=== PATIENT | female | born 2000 | race African-American/Black ===

== ENCOUNTER 2020-03-12 19:32 | Emergency (ER) | payer BC ==
[~2020-03-12] VITALS: Ht 170.2 cm; Wt 63.5 kg
--- NOTE | 2020-03-12 19:49 | NUR ---
ED Nurse Note: pt presents to ED c/o frontal DURAN x 1 day, states that it is hard for her to concentrate and has made her vision blurry, pt also reports possible loss of taste, denies any exposure to COVID + pt, denies fevers or SOB.
[2020-03-12 19:50] VITALS: BP 99/70
[2020-03-12 20:37] LABS: APPEARANCE,URINE CLEAR; BILIRUBIN, URINE NEGATIVE (NEGATIVE); COLOR,URINE YELLOW; GLUCOSE, URINE (UA) NEGATIVE (NEGATIVE); KETONES,URINE 1+ (NEGATIVE); LEUKOCYTE ESTERASE ,URINE NEGATIVE (NEGATIVE); NITRITE,URINE NEGATIVE (NEGATIVE); PH,URINE 5 (4.5-8.0); PROTEIN,URINE 2+ (NEGATIVE); UROBILINOGEN,URINE NORMAL MG/DL (0.0-1.0)
[2020-03-12] MEDS ORDERED: Ketorolac 60mg Inj IM ONE (21:00)
[2020-03-12] MEDS ORDERED: ZITHROMAX250 MG ORAL (21:14)
[2020-03-12] MEDS ORDERED: TYLENOL325 MG ORAL (21:14)
[2020-03-12] MEDS ORDERED: NAPROXEN500 M1 ORAL (21:14)
--- NOTE | 2020-03-12 21:14 | Emergency Room Report ---
History of Present Illness General Chief Complaint: Headache Source: Patient Present Illness HPI 19-year-old female with no prior medical history presents with chief complaint of loss of taste and smell. States she smells "metal". Also complains of intermittent fatigue, dry cough, i ntermittent nasal congestion, and frontal headache located over her sinuses. Is similar to previous headaches that she has had in the past, however states that the she has never experienced difficulty smelling like this in the past. She is unaware of any recent sick contacts. No recent antibiotic use, travel, hospitalization, rash, photophobia, neck pain/stiffness, CP, SOB, n/v/d, hematuria, or dysuria. Denies thunderclap onset, trauma, falls, syncope, or worst headache of life. She took Tylenol prior to arrival with minimal relief of symptoms. Occupation: [employer] The patient's symptoms were gradual onset, severity was moderate, duration since a few days. Quality: Loss of smell Past medical history: Denies Past surgical history: Denies Smoking: Denies Alcohol use: Denies Drug use: Marijuana use Review of systems: CONST: No fevers or chills, No night sweats, fatigue PULMONARY: No productive cough, No shortness of breath CARDIAC: No chest pain, No palpitations GI: No vomiting, No diarrhea , No melena_or_BRBPR : No dysuria, No hematuria, No discharge NEURO: No new_focal_weakness_or_numbness, No confusion, No vision changes 14 point Review of Systems is otherwise negative except per HPI Physical Exam: GENERAL: Awake_alert_ nontoxic, no acute distress Spo2 98% on RA -normal EYES: Extraocular muscles are intact. Conjunctivae clear. Lids without swelling. No nystagmus. Negative hypopyon. PERRLA. ENT: External nose and ear normal_in_appearance. Oropharynx clear. Head_atraumatic, Moist_oral_mucosa. Uvula is midline. No pain with palpation of the trachea. NECK: No JVD. No meningismus. No thyromegaly. Supple. Trachea midline RESP: Normal respiratory effort. Symmetric rise. No stridor. Clear_to_auscultation_No_rales_No_wheezes Speaks in full and complete sentences. No subcostal retractions CARDIAC: Regular rate and regular rhytm. No_significant pedal edema. ABDOMEN: Soft. Nondistended. Nontender_No_rebound_or_guarding. MSK: Normal muscle tone, without rigidity. Extremities without asymmetric deformity or swelling. SKIN: Warm and dry. No visible cyanosis or pallor. No petechiae or rash NEUROLOGIC: Alert, oriented x3. Motor_and_sensation_grossly_intact. No truncal ataxia. Gait_normal No abnormal cerebellar signs. Normal uxigje-cs-jwji. No tenderness to palpation of bilateral temples Psych: Normal mood and affect, normal judgment and insight - COORDINATION OF CARE Case was discussed with: Patient Any labs and imaging that were ordered were interpreted as part of the medical decision making: Medical Decision Making/Plan: Differential for the patients headache includes COVID-19, viral infection, primary headache (migraine, tension, cluster), acute sinusitis Doubt subarachnoid hemorrhage, intracranial mass / tumor, meningitis, encephalitis, increased intracranial pressure, mastoiditis, dural venous thrombosis, temporal arteritis, acute angle closure glaucoma, among others. Patient is well-appearing, afebrile, neurologically intact with no nuchal rigi dity. Visual acuity is grossly intact. Covid swab was performed secondary to syndrome of symptoms and found to be positive. Headache not sudden and severe, not worst headache of life, no family hx of SAH, neurologically intact without any persistent vomiting. Not consistent with subarachnoid hemorrhage, dural venous thrombosis, increased intracranial pressure, or significant tumor at this time. No temporal tenderness, jaw claudication or vision loss. Eyes are reactive, with normal appearing anterior chambers. No evidence of temporal arteritis or acute angle closure glaucoma. Patient without meningismus, mastoid / sinus tenderness, altered mental status or seizure. Doubt subdural abscess, meningitis, encephalitis, mastoiditis. No significant trauma mechanism, not anticoagulated. [place] CT head criteria negative. CT scan of the head was ordered, however patient declined at this time. She states that she will follow-up and come back if she continues to have headache. The patient was nontoxic with benign vital signs. They did not meet admission criteria and was stable for outpatient therapy, under the current guideline. The patient was instructed to be home quarantined, and appropriate precautions were given. The patient was educated and instructed to notify a healthcare professional if they develop difficulty breathing, chest pain, palpitations, fever or other concerning symptoms. These instructions were given to the patient in both verbal and written forms. The patient was given an opportunity to ask questions. The patient was discharged with written instructions for COVID-19, including strict ED return precautions. Allergies: Coded Allergies: No Known Allergies (Unverified , 03/12/20) COVID-19 Screening Contact w/high risk pt: No Experienced COVID-19 symptoms?: Yes COVID-19 Testing performed LINE FIXER: No Patient History Last Menstrual Period: 02/2020 Nursing Documentation-[facility] Past Medical History: No Stated History Physical Exam Vital Signs Date Time Temp Pulse Resp B/P (MAP) Pulse Ox O2 Delivery O2 Flow Rate FiO2 03/12/20 19:37 98.4 74 16 99/70 (80) 98 Room Air Sp02 EP Interpretation: reviewed, normal Medical Decision Making Diagnostic Impression: Primary Impression: Headache Additional Impressions: COVID-19 Anosmia Reevaluation Time: 21:23 Last Vital Signs Date Time Temp Pulse Resp B/P (MAP) Pulse Ox O2 Delivery O2 Flow Rate FiO2 03/12/20 19:50 98.4 16 99/70 98 Room Air 03/12/20 19:37 74 Status: improved Disposition: HOME, SELF-CARE Admit Decision Time: 21:25 Condition: Stable Scripts Naproxen* (NAPROXEN*) 500 Mg Tablet.dr 500 MG ORAL TWICE A DAY for 7 Days, #14 TAB Prov: Zully Ingram D.O. 03/12/20 Acetaminophen (Tylenol) 325 Mg Tablet 325 MG ORAL Q6H PRN for Prn Pain/Headache/Temp > 101, #30 TAB 0 Refills Prov: Zully Ingram D.O. 03/12/20 Azithromycin* (ZITHROMAX*) 250 Mg Tablet 250 MG ORAL DAILY, #6 TAB 0 Refills Take two tables once daily for 1 day, then one tablet once daily for 4 days. Prov: Zully Ingram D.O. 03/12/20 Referrals: NOT CHOSEN IPA/,REFERRING (PCP) Patient Instructions: Sinus Headache Additional Instructions: Instructions for patient/molder inflated ball: Follow up with your physician in 1-2 days. Follow-up with your doctor sooner if your condition requires a more timely clinical reevaluation. Return to the emergency department immediately if you feel that your condition is worsening or if you have any new or concerning symptoms. Review your discharge instructions and take any prescriptions given as instructed. [facility] PROVIDES FREE OR LOW-COST HEALTH SERVICES TO PEOPLE WHO CAN SHOW PROOF THAT THEY LIVE IN [facility]. TO FIND MORE CLINICS PARTNERED WITH [facility] TO PROVIDE SERVICE, PLEASE CALL . Your evaluation suggests that you are suffering from a viral infection producing a viral syndrome. You can sign up for testing with [facility] at the following website as discussed [email or web address] Symptoms of a viral syndrome may include fever, sore throat, headache, body aches and pains, generalized weakness and fatigue, and runny nose. You do not show signs or symptoms suggestive of a serious or life threatening illness. This illness may be caused by a number of different viruses, including Influenza A or B or COVID-19. These viruses are highly contagious and spread rapidly from person to person via coughing and sneezing of the virus or by contaminated surface contact with nasal or other respiratory secretions. These viruses cause a similar combination of signs and symptoms which are typically much more severe than the common cold. Typically they begin with the rapid onset of fever, often high (over 102), body aches, fatigue, headache, and usually upper respiratory tract infections symptoms such as cough, runny nose, and sore throat. The illness typically lasts 7-10 days, with the fever and feelings of weakness and body aches usually lasting 3-5 days. Your own immune system fights off these infections. Only rarely do secondary bacterial infections occur (such as bacterial pneumonia) and can be serious. At this time your symptoms do not appear serious, however, there are limitations to online visits and if you are not improving you may need to be evaluated by a doctor in person and that doctor may need to do additional tests. INSTRUCTIONS: Illnesses such as yours typically resolve on their own with time however you must remember to stay hydrated and drink 2-3 times your normal fluid intake, as fever and your increased metabolism in fighting the infection uses more water. Fever control is important to help you feel better and to help prevent dehydration. Acetaminophen is an excellent choice for fever control and other symptoms (as long as you are not allergic to the medication). Rest is also important in helping your body fight this infection. Over the counter cough and decongestant medications are safe (as long as you dont have uncontrolled high blood pressure) and may help the cough and congestion slightly. As these viruses are highly contagious, good hand washing habits, and covering your cough and sneeze help prevent spread. Fever can be a sign of a serious infection and it is imperative that you go directly to an Emergency Department for serious symptoms such as weakness, confusion, significant shortness of breath, abdominal pain, or severe headache. Close follow up with a physician is important if you are not improving over the next few days or you experience worsening of your symptoms. Although it is impossible to know at this point if you have COVID-19 (the Benitez virus), please quarantine yourself and anyone else that is residing with you for the longer of the following time periods: 14 days OR 3 days after the last of your symptoms has resolved CONTACT THE DOCTOR RIGHT AWAY if you develop worsening symptoms such as shortness of breath, chest pain, neck stiffness, confusion or any other new, worsening, or concerning symptoms. For emergencies contact 911 immediately. Zully Ingram D.O. Mar 12, 2020 21:14
[2020-03-12 21:19] VITALS: BP 101/67
--- NOTE | 2020-03-12 21:20 | NUR ---
ER DISCHARGE NOTE: Patient is cleared to be discharged per ERMD, pt is aox4, on room air, with stable vital signs. pt was given dc and prescription instructions, pt was able to verbalize understanding, pt id band removed without complications. pt is able to ambulate with steady gait. pt took all belongings.
[2020-03-12 21:23] VITALS: BP 101/67
== END 2020-03-12 21:20 | disposition home or self-care (01) ==
LOC: EMR 20:28
DX: R51.9 Headache, unspecified (principal); U07.1 COVID-19; R43.0 Anosmia; R43.8 Other disturbances of smell and taste; R53.83 Other fatigue
CPT/HCPCS: 81003; 81025; 96372; 99283; U0002

== ENCOUNTER 2020-03-14 19:04 | Emergency (ER) | payer BC ==
[~2020-03-14] VITALS: Ht 170.2 cm; Wt 63.5 kg
[~2020-03-14 19:04] MED LIST: NAPROXEN500 M1 ORAL; TYLENOL325 MG ORAL; ZITHROMAX250 MG ORAL
[2020-03-14 19:10] VITALS: BP 125/72
--- NOTE | 2020-03-14 19:29 | NUR ---
ED Nurse Note: pt. aaox4, ambulatory. Patient walked into ED c/o forgetfullness and light headedness onset since 5pm today. patient reports of feeling weak
--- NOTE | 2020-03-14 19:43 | Emergency Room Report ---
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 Patient History Past Medical History: see triage record Social History: Reports: drug use - Marijuana use Last Menstrual Period: 03/06/20 Reviewed Nursing Documentation: PMH: Agreed; PSxH: Agreed Nursing Documentation-PMH Past Medical History: No Stated History Review of Systems All Other Systems: negative except mentioned in HPI Physical Exam Vital Signs Date Time Temp Pulse Resp B/P (MAP) Pulse Ox O2 Delivery O2 Flow Rate FiO2 03/14/20 19:10 74 18 Room Air 03/14/20 19:10 98.2 125/72 95 Sp02 EP Interpretation: reviewed, normal General Appearance: well appearing, no apparent distress, alert Head: normocephalic, atraumatic Eyes: bilateral eye PERRL, bilateral eye EOMI ENT: uvula midline, moist mucus membranes Neck: supple, thyroid normal, supple/symm/no masses Respiratory: lungs clear, no respiratory distress, no retraction, no accessory muscle use Cardiovascular #1: normal peripheral pulses, regular rate, rhythm, no edema, no gallop, no murmur Gastrointestinal: non tender, soft, no guarding, no rebound Musculoskeletal: normal inspection Neurologic: alert, oriented x3 Psychiatric: mood/affect normal Skin: no rash, warm/dry Medical Decision Making Diagnostic Impression: Primary Impression: COVID-19 ER Course 19-year-old female presents with Covid and generalized symptoms of it No indications for admission patient is currently on oxygen no respiratory distress strict return precautions were discussed isolation precautions were discussed Covid handout handed out Disposition home with return precautions follow-up with PCP Last Vital Signs Date Time Temp Pulse Resp B/P (MAP) Pulse Ox O2 Delivery O2 Flow Rate FiO2 03/14/20 19:10 98.2 74 18 125/72 (89) 95 Room Air Disposition: HOME, SELF-CARE Condition: Stable Referrals: [facility] Phan Liriano. [facility] Patient Instructions: Upper Respiratory Infection, Adult, [id number] Additional Instructions: The patient was provided with discharge instructions, notified to follow-up with a primary care doctor and or specialist in the next 24-48 hours, and to return to the ED if they have worsening of their symptoms. Please note that this report is being documented using [employer] technology. This can lead to erroneous entry secondary to incorrect interpretation by the dictating instrument. Brian Vincent MD Mar 14, 2020 19:43
[2020-03-14 19:47] VITALS: BP 132/78
--- NOTE | 2020-03-14 19:47 | NUR ---
ER DISCHARGE NOTE: Patient is cleared to be discharged per ERMD, pt is aox4, on room air, with stable vital signs. pt was given dc and prescription instructions, pt was able to verbalize understanding, pt id band removed. pt is able to ambulate with steady gait. pt took all belongings.
== END 2020-03-14 19:47 | disposition home or self-care (01) ==
LOC: EMR 19:10
DX: R53.1 Weakness (principal); F12.90 Cannabis use, unspecified, uncomplicated
CPT/HCPCS: 81025; 99283